=== PATIENT | male | born 1980 | race Two or more races ===

== ENCOUNTER 2017-02-19 05:32 | Day surgery (SDC) | payer OTHER ==
[2017-02-19] MEDS ORDERED: IV NS 0.9% 1,000 ML ONE (06:12)
[2017-02-19] MEDS ORDERED: NEEDLELESS EST SET LARGE BORE 1 EA INFUS.SET MC ONE (06:13)
[2017-02-19] MEDS ORDERED: IV SET PRIMARY 1 EA INFUS.SET MC ONE (06:13)
[2017-02-19] MEDS ORDERED: EPINEPHRINE (1:1000) MDV 30 MG/30ML VIAL ONE (07:07)
[2017-02-19] MEDS ORDERED: LIDOCAINE HCL/PF 1% 30 ML SDV ONE (07:07)
[2017-02-19] MEDS ORDERED: FENTANYL PF 100MCG/2ML AMPUL ONE ×2 (07:21→09:59)
[2017-02-19] MEDS ORDERED: MIDAZOLAM HCL 2 MG/2ML VIAL ONE (07:21)
[2017-02-19] MEDS ORDERED: SUCCINYLCHOLINE CHLORIDE 20 MG/ML VIAL ONE (07:22)
[2017-02-19] MEDS ORDERED: ROCURONIUM BROMIDE 50 MG/5 ML ONE (07:22)
[2017-02-19] MEDS ORDERED: ACETAMINOPHEN W/ CODEINE#3 1 EA TABLET ONE (10:15)
[2017-02-19] MEDS ORDERED: ONDANSETRON HCL/PF 4 MG/2 ML VIAL ONE (10:21)
== END 2017-02-19 11:35 | disposition home or self-care (01) ==
LOC: DS 05:32
PROVIDERS: ATTEND Specialist
DX: S43.431A Superior glenoid labrum lesion of right shoulder, initial encounter (principal); M19.011 Primary osteoarthritis, right shoulder; M25.811 Other specified joint disorders, right shoulder; X58.XXXA Exposure to other specified factors, initial encounter; Y93.9 Activity, unspecified; Y92.89 Other specified places as the place of occurrence of the external cause; Y99.9 Unspecified external cause status; R00.1 Bradycardia, unspecified; E78.5 Hyperlipidemia, unspecified
CPT/HCPCS: 88304-TC; 88305-TC; 88311-TC; A4217; A4565; J0171; J0330; J1100; J2250; J2405; J2704; J3010; J3490; J7030